=== PATIENT | male | born 1965 | race Caucasian/White ===

== ENCOUNTER 2020-02-02 16:37 | Emergency (ER) | payer BC ==
[~2020-02-02] VITALS: Ht 177.8 cm; Wt 107.7 kg
[2020-02-02] MEDS ORDERED: LIDOCAINE W/EPINEPHRINE 1% 20ML VIAL As Ordered ONE (17:51)
[2020-02-02] MEDS ORDERED: LIDOCAINE W/EPINEPHRINE 1% 20ML VIAL SC ONE (18:00)
[2020-02-02] MEDS ORDERED: OLME40TA PO (18:03)
[2020-02-02] MEDS ORDERED: HYDR12.55 PO (18:03)
[2020-02-02] MEDS ORDERED: METO1TAB87 PO (18:03)
[2020-02-02] MEDS ORDERED: LOVE0.8I SC (18:03)
[2020-02-02] MEDS ORDERED: LEXA1TAB PO (18:03)
[2020-02-02] MEDS ORDERED: POTA20TA6 PO (18:03)
[2020-02-02] MEDS ORDERED: MONT10TA4 PO (18:03)
[2020-02-02 18:32] VITALS: BP 124/57
== END 2020-02-02 18:45 | disposition home or self-care (01) ==
LOC: M ED 16:37
DX: I97.618 Postprocedural hemorrhage of a circulatory system organ or structure following other circulatory system procedure (principal); T14.8XXA Other injury of unspecified body region, initial encounter; Z85.6 Personal history of leukemia; Z79.01 Long term (current) use of anticoagulants; Z79.899 Other long term (current) drug therapy; Z88.5 Allergy status to narcotic agent